=== PATIENT | female | born 1975 | race Caucasian/White ===

== ENCOUNTER 2022-08-13 05:01 | Inpatient (IN) | payer MEDICAID, OTHER ==
[2022-08-13 05:33] VITALS: BMI 34.6
[2022-08-13] MEDS ORDERED: Misoprostol 200 MCG TAB PR PRN (06:05)
[2022-08-13] MEDS ORDERED: Promethazine HCl 25 MG/ML VIAL IM PRN (06:05)
[2022-08-13] MEDS ORDERED: Carboprost 250 MCG/ML AMP IM PRN (06:05)
[2022-08-13] MEDS ORDERED: Methylergonovine 0.2 MG/ML VIAL IM PRN (06:05)
[2022-08-13] MEDS ORDERED: Lidocaine 1% (PF) 30 ML VIAL SC PRN (06:05)
[2022-08-13] MEDS ORDERED: HYDROcodone/Acetaminophen 5/325 mg Tablet PO PRN (06:05)
[2022-08-13] MEDS ORDERED: Ondansetron PF 4 MG/2 ML Vial IVP PRN (06:05)
[2022-08-13] MEDS ORDERED: Ibuprofen 800 MG TAB PO PRN (06:05)
[2022-08-13] MEDS ORDERED: Diphenoxylate HCl/Atropine Tablet PO PRN (06:05)
[2022-08-13] MEDS ORDERED: hydrALAZINE 20 MG/ML VIAL SLOW IVP PRN (06:05)
[2022-08-13] MEDS ORDERED: Acetaminophen 500 MG TAB PO PRN (06:05)
[2022-08-13] MEDS ORDERED: Zolpidem Tartrate 5 MG TAB PO PRN (06:05)
[2022-08-13] MEDS ORDERED: Penicillin G Potassium 5 MILL.UNITS in Sodium Chloride 0.9% 100 ML IVPB SCH (06:15)
[2022-08-13] MEDS ORDERED: NS w/ Oxytocin 30 units 500 ML IV SCH (06:15)
[2022-08-13] MEDS: Betamet Acet/Betamet Na Ph 30 MG/5 ML VIAL IM SCH (06:24)
[2022-08-13 07:23] LABS: Mean Corpuscular HGB CONC 35.9 g/dL (32.0-36.0); Mean Corpuscular Hemoglobin 28.7 pg (27.0-33.0); Mean Corpuscular Volume 79.9 fl (81.6-98.3); Mean Platelet Volume 10.2 fl (7.4-10.4); Platelet Count 291 10x3/uL (150-450); RBC Distribution Width 14.7 % (11.5-14.5); Red Blood Cell (RBC) Count 4.53 10x6/uL (3.90-5.03); White Blood Cell (WBC) Count 14.9 10x3/uL (3.5-10.5)
[2022-08-13 07:53] LABS: Syphilis Antibody Nonreactive (Nonreactive); Syphilis Antibody Index 0.04 S/CO (<1.00 Non-Reactive)
[2022-08-13 07:54] LABS: HBSAg Index 0.12 S/CO (0-0.99); Hep B Surf Ag Non-Reactive S/CO (NonReactive)
[2022-08-13 08:17] LABS: SARS-CoV-2 NAA Rapid Test Not Detected (NotDetected)
[2022-08-13] MEDS ORDERED: Bupivacaine PF 0.5% 30 ML VIAL ONE (09:00)
[2022-08-13] MEDS ORDERED: Famotidine 20 MG TAB PO PRN (09:23)
[2022-08-13] MEDS ORDERED: Azithromycin 250 MG TAB PO SCH (09:30)
[2022-08-13] MEDS: Penicillin G 2.5 MILL.units 2.5 MILL.UNITS in Premix Bag 1 BAG IVPB SCH ×4 (11:50→23:20)
[2022-08-13] MEDS: Lactated Ringer's 1,000 ML IV SCH ×3 (22:19→23:24)
[2022-08-14] MEDS ORDERED: Calcium Carbonate 500 MG ChewTAB PO PRN (00:21)
[2022-08-14] MEDS: Butorphanol Tartrate 1 MG/ML VIAL SLOW IVP PRN ×2 (01:12→02:54)
[2022-08-14] MEDS ORDERED: Fentanyl 2 mcg/Bup 0.1% Cadd 100 ML ONE (03:05)
[2022-08-14] MEDS: Penicillin G 2.5 MILL.units 2.5 MILL.UNITS in Premix Bag 1 BAG IVPB SCH (03:10)
[2022-08-14] MEDS ORDERED: Ondansetron PF 4 MG/2 ML Vial IVP PRN ×2 (03:45→09:09)
[2022-08-14] MEDS ORDERED: Communication Order-Pharmacy FS SCH (03:45)
[2022-08-14] MEDS ORDERED: Lactated Ringer's 500 ML IV PRN (03:45)
[2022-08-14] MEDS ORDERED: diphenhydrAMINE 50 MG/ML VIAL IVP PRN (03:45)
[2022-08-14] MEDS ORDERED: Promethazine HCl 25 MG/ML VIAL IM PRN ×2 (03:45→09:09)
[2022-08-14] MEDS ORDERED: Acetaminophen 325 MG TAB PO PRN (03:45)
[2022-08-14] MEDS ORDERED: ePHEDrine Sulfate 50 MG/10 ML VIAL SLOW IVP PRN (03:45)
[2022-08-14] MEDS ORDERED: Fentanyl 2 mcg/Bupivacaine 0.1% Cassette 100 ML EPIDURAL SCH (03:45)
[2022-08-14] MEDS ORDERED: Naloxone HCl 0.4 mg/ml Vial IVP PRN ×2 (03:45)
[2022-08-14] MEDS ORDERED: Moisturizing Cream (Eucerin) 113 GM JAR TOP PRN (03:45)
[2022-08-14] MEDS: Betamet Acet/Betamet Na Ph 30 MG/5 ML VIAL IM SCH (03:56)
[2022-08-14] MEDS ORDERED: Lidocaine 1% (PF) 30 ML VIAL ONE (05:41)
[2022-08-14] MEDS ORDERED: NS w/ Oxytocin 30 units 500 ML ONE (05:41)
[2022-08-14] MEDS ORDERED: Boostrix 0.5 ML (Tdap) VIAL (>/=7 yrs of age) IM ONE (09:09)
[2022-08-14] MEDS ORDERED: Bisacodyl 10 MG SUPP PR PRN (09:09)
[2022-08-14] MEDS ORDERED: HYDROcodone/Acetaminophen 5/325 mg Tablet PO PRN ×2 (09:09)
[2022-08-14] MEDS ORDERED: hydrALAZINE 20 MG/ML VIAL SLOW IVP PRN (09:09)
[2022-08-14] MEDS ORDERED: Benzocaine-Menthol 82.5 ML CAN TOP PRN (09:09)
[2022-08-14] MEDS ORDERED: Lanolin Ointment 7 GM TUBE TOP PRN (09:09)
[2022-08-14] MEDS ORDERED: Milk Of Magnesia 30 ML UDCUP PO PRN (09:09)
[2022-08-14] MEDS ORDERED: diphenhydrAMINE 25 MG CAP PO PRN (09:09)
[2022-08-14] MEDS ORDERED: Preparation H Ointment 28 GM TUBE PR PRN (09:09)
[2022-08-14] MEDS: Docusate 100 MG CAP PO SCH ×2 (11:05→22:05)
[2022-08-14] MEDS: Prenatal Vitamin 1 TAB PO SCH (11:05)
[2022-08-14] MEDS: Ibuprofen 800 MG TAB PO SCH ×2 (13:47→22:05)
[2022-08-14] MEDS: Ferrous Sulfate 325 MG TAB PO SCH (15:55)
[2022-08-15] MEDS: Ibuprofen 800 MG TAB PO SCH ×3 (05:30→22:05)
[2022-08-15] MEDS: Ferrous Sulfate 325 MG TAB PO SCH ×2 (14:38→19:24)
[2022-08-15] MEDS: Docusate 100 MG CAP PO SCH ×2 (14:39→21:29)
[2022-08-15] MEDS: Prenatal Vitamin 1 TAB PO SCH (14:39)
[2022-08-16] MEDS: Ibuprofen 800 MG TAB PO SCH ×2 (05:09→14:16)
[2022-08-16] MEDS: Ferrous Sulfate 325 MG TAB PO SCH (07:25)
[2022-08-16 08:03] VITALS: BP 106/59; TEMP 98.3
[2022-08-16] MEDS: Prenatal Vitamin 1 TAB PO SCH (08:18)
[2022-08-16] MEDS: Docusate 100 MG CAP PO SCH (08:18)
== END 2022-08-16 15:01 | disposition home or self-care (01) | DRG 807 ==
LOC: CSHLD/OP 05:01 → CSHLD 05:49 → CSHPP 08-14 08:59
PROVIDERS: ADMIT Student in an Organized Health Care Education/Training Program; ATTEND Student in an Organized Health Care Education/Training Program
PROC: 10E0XZZ Delivery of Products of Conception, External Approach (ICD-10-PCS; principal; 2022-08-14)
DX: O60.14X0 Preterm labor third trimester with preterm delivery third trimester, not applicable or unspecified (principal); Z37.0 Single live birth; Z3A.36 36 weeks gestation of pregnancy; Z20.822 Contact with and (suspected) exposure to COVID-19
CPT/HCPCS: 36415; 51702; 76815; 85027; 86780; 86850; 86900; 86901; 87340; 99285; J0595; J0702; J2540; J3490; J7120; S0020; U0002